=== PATIENT | male | born 1990 | race Caucasian/White ===

== ENCOUNTER 2018-04-12 02:00 | Emergency (ER) | payer MEDICAID ==
[~2018-04-12] VITALS: Wt 103.6 kg
[2018-04-12 02:08] VITALS: BP 136/75; PULSE 84; RESP 18
[2018-04-12] MEDS ORDERED: D-ME118S24 PO (02:31)
[2018-04-12] MEDS ORDERED: SODI30SP2 NS (02:31)
--- NOTE | 2018-04-12 06:23 | ERD ---
ER Documentation Chief Complaint Chief Complaint SPONTANEOUS NOSE BLEED AND DIZZINESS TONIGHT HPI 27-year-old male presents for epistaxis of the left nose times 2 days. He states that he put pressure over the nares and was able to stop the bleeding. No current bleeding noted. He states that he has some headache and dizziness. He also notes that he has been coughing for 3 days. No runny nose noted. Denies fevers or chills. Denies chest pain or shortness of breath. ROS All systems reviewed and are negative except as per history of present illness. Medications Home Meds Active Scripts D-Methorphan Hb/P-Epd HCl/Bpm (Yrgrmjzcfv-Jjizekmexcd-Zb Syr) 118 Ml Syrup, 5 ML PO Q4H PRN for COUGH, #1 BOTTLE Prov:THIEN VEGA DO 04/12/18 Sodium Chloride (Saline Nasal Carpenter) 30 Ml Carpenter, 30 ML NS BID for nasal dryness, #1 BOTTLE Prov:THIEN VEGA DO 04/12/18 Allergies Allergies: Coded Allergies: No Known Allergy (Unverified , 04/12/18) PMhx/Soc Medical and Surgical Hx: pt denies Medical Hx History of Surgery: Yes (Hernia repair) Anesthesia Reaction: No Hx Neurological Disorder: No Hx Respiratory Disorders: No Hx Cardiac Disorders: No Hx Psychiatric Problems: No Hx Miscellaneous Medical Probl: No Hx Alcohol Use: Yes (social) Hx Substance Use: No Hx Tobacco Use: No Smoking Status: Never smoker Physical Exam Vitals Vital Signs Date Temp Pulse Resp B/P (MAP) Pulse Ox O2 O2 Flow FiO2 Time Delivery Rate 04/12/18 97.2 84 18 136/75 99 02:08 (95) Physical Exam Const: No acute distress Head: Atraumatic Eyes: Normal Conjunctiva ENT: Normal External Ears, Nose and Mouth. Dry blood noted over the left nostril, no active bleeding Neck: Full range of motion. No meningismus. Resp: Clear to auscultation bilaterally Cardio: Regular rate and rhythm, no murmurs Ext: No cyanosis, or edema Neur: Awake and alert Psych: Normal Mood and Affect Procedures/MDM Medical Decision Making: Patient appeared well on examination. The left nose epistaxis had stopped on presentation to the ER. Patient advised regarding placing pressure over the nose if the bleeding recurs. Patient given prescription for nasal saline spray and Bromfed for cough. Patient advised to follow up with PCP in 1-2 days. Patient advised to return to ED for new or worsening symptoms. Patient stable on discharge from the ED. Disclaimer: Inadvertent spelling and grammatical errors are likely due to EHR/dictation software use and do not reflect on the overall quality of patient care. Also, please note that the electronic time recorded on this note does not necessarily reflect the actual time of the patient encounter. Departure Diagnosis: Primary Impression: Epistaxis Condition: Fair Patient Instructions: Epistaxis (Adult) Referrals: [facility] YOU HAVE RECEIVED A MEDICAL SCREENING EXAM AND THE RESULTS INDICATE THAT YOU DO NOT HAVE A CONDITION THAT REQUIRES URGENT TREATMENT IN THE EMERGENCY DEPARTMENT. FURTHER EVALUATION AND TREATMENT OF YOUR CONDITION CAN WAIT UNTIL YOU ARE SEEN IN YOUR DOCTORS OFFICE WITHIN THE NEXT 1-2 DAYS. IT IS YOUR RESPONSIBILITY TO MAKE AN APPOINTMENT FOR FOLOW-UP CARE. IF YOU HAVE A PRIMARY DOCTOR --you should call your primary doctor and schedule an appointment IF YOU DO NOT HAVE A PRIMARY DOCTOR YOU CAN CALL OUR PHYSICIAN REFERRAL HOTLINE AT IF YOU CAN NOT AFFORD TO SEE A PHYSICIAN YOU CAN CHOSE FROM THE FOLLOWING [facility] [address] [facility]. [facility] [address] [facility]. [facility] [address] [facility] [facility] [address] [facility]. [facility] [address] [facility]. [facility]. [address] Additional Instructions: Llame al doctor MAANA y armin joey NORM PARA DENTRO DE 1-2 MAHARAJ.Dgale a la secretaria que nosotros le instruimos hacer esta norm.Avise o llame si ward condicin se empeora antes de la norm. Regresa aqui si peor o no mejor. THIEN VEGA DO Apr 12, 2018 06:22
== END 2018-04-12 02:43 | disposition home or self-care (01) ==
LOC: FTE 02:00
DX: R04.0 Epistaxis (principal)
CPT/HCPCS: 99283